=== PATIENT | male | born 1950 | race Hispanic/Latino ===

== ENCOUNTER 2022-12-27 17:00 | Emergency (ER) | payer MEDICARE, SELFPAY ==
--- NOTE | 2022-12-27 19:13 | ED.WOUNDLAC ---
HPI - Wound/Laceration General Chief Complaint: Wound/Laceration <Hillary Ocampo PA-C - Last Filed: 12/27/22 19:47> Stated Complaint: fell through glass door <JOLENE Flower Last Filed: 12/27/22 19:47> Time Seen by Provider: 12/27/22 19:02 <Hillary Ocampo PA-C - Last Filed: 12/27/22 19:47> History of Present Illness HPI narrative: 72-year-old male who is currently taking Plavix reports for evaluation for multiple superficial abrasions and petechiae throughout his body after falling through a glass shower door. Patient states he was standing on a stool and taping the wall to paint, lost his balance as he was reaching up to apply tape and fell backwards, causing his left elbow to penetrate the glass shower door. He reports with multiple superficial lacerations and abrasions throughout his back, left upper extremity and left lower extremity. Bleeding is well-controlled. His last tetanus vaccine was 6 months ago. States that he removed all of the glass shards from his scalp and does not feel any glass in his upper or lower extremity. Denies hitting his head, LOC, other injury. Reports no pain. Denies glass in his eyes or mouth. <Hillary Ocampo PA-C - Last Filed: 12/27/22 19:47> Related Data Allergies/Adverse Reactions: Allergies Allergy/AdvReac Type Severity Reaction Status Date / Time No Known Allergies Allergy Verified 12/27/22 18:50 <Hillary Ocampo PA-C - Last Filed: 12/27/22 19:47> Review of Systems Review of Systems: CONSTITUTIONAL: Denies fever, chills EYES: Denies visual changes, redness, or discharge. ENT: Denies rhinorrhea, congestion, sore throat, or otalgia. CARDIOVASCULAR: Denies chest pain, palpitations, or edema. RESPIRATORY: Denies cough or dyspnea. GASTROINTESTINAL: Denies abdominal pain, nausea, vomiting, or diarrhea. GENITOURINARY: Denies dysuria or hematuria. SKIN: See HPI MUSCULOSKELETAL: Denies back pain, joint pain, or myalgia. NEUROLOGIC: Denies headache, numbness, dizziness, or weakness. PSYCHIATRIC: Denies anxiety or depression. <Hillary Ocampo PA-C - Last Filed: 12/27/22 19:47> Exam Narrative: GENERAL: Well-appearing, in no acute distress. HEAD: Normocephalic NECK: Supple. CHEST: No respiratory distress. Clear to auscultation, no adventitious breath sounds. HEART: Regular rate and rhythm. No murmur heard. Normal peripheral pulses. EXTREMITIES: Normal range of motion. No edema. SKIN: Multiple scattered superficial abrasions and petechiae to the upper back, left upper extremity and left lower extremity. There is a superficial skin avulsion to the left elbow, left knee and left ankle. Bleeding controlled throughout. A few small scattered shards of glass in his hair which were removed. No glass palpated in his scalp, extremities, back, chest or abdomen. No pain with palpation anywhere. Full range of motion of all extremities. DP and radial pulses 2+. Sensation intact throughout. NEURO: No focal deficits. Alert and oriented x3. PSYCH: Normal mood and affect. <Hillary Ocampo PA-C - Last Filed: 12/27/22 19:47> Course ESTIMATOR AND DRAFTER/PA Physician Supervision I agree with midlevel documentation; I performed the medical decision making component of this evaluation. <Neha Jacobs MD - Last Filed: 12/28/22 19:50> Vital Signs Vital signs: Vital Signs Pulse Rate 87 12/27/22 20:02 Respiratory Rate 18 12/27/22 20:02 Blood Pressure 134/76 12/27/22 20:02 Pulse Oximetry 98 12/27/22 20:02 Pulse Rate 87 12/27/22 20:02 Respiratory Rate 18 12/27/22 20:02 Blood Pressure 134/76 12/27/22 20:02 Pulse Oximetry 98 12/27/22 20:02 <Hillary Ocampo PA-C - Last Filed: 12/27/22 19:47> Vital Signs Pulse Rate 87 12/27/22 20:02 Respiratory Rate 18 12/27/22 20:02 Blood Pressure 134/76 12/27/22 20:02 Pulse Oximetry 98 12/27/22 20:02 Pulse Rate 87 12/27/22 20:02 Respiratory Rate
[2022-12-27 20:02] VITALS: BP 134/76; PULSE 87; RESP 18; O2SAT 98
== END 2022-12-27 20:00 | disposition home or self-care (01) ==
PROVIDERS: Emergency Provider Physician Assistant
DX: S51.002A Unspecified open wound of left elbow, initial encounter (principal); S81.002A Unspecified open wound, left knee, initial encounter; S91.002A Unspecified open wound, left ankle, initial encounter; S50.812A Abrasion of left forearm, initial encounter; S40.812A Abrasion of left upper arm, initial encounter; S20.419A Abrasion of unspecified back wall of thorax, initial encounter; W17.89XA Other fall from one level to another, initial encounter; Z79.02 Long term (current) use of antithrombotics/antiplatelets
CPT/HCPCS: 99282